=== PATIENT | female | born 1990 | race Two or more races ===

== ENCOUNTER → 2016-06-07 | Outpatient (CLI) | payer OTHER ==
[~2016-06-07] MED LIST: ACET50TA PO; COLA50CA3 PO; IBUP80TA PO; [UNRECOGNIZED DRUG - CODE] TOP
--- NOTE | 2016-06-07 16:28 | REP ---
LEFT FOOT: HISTORY: Pain after trauma. COMPARISON: None. FINDINGS: The joint spaces are symmetric and relatively well maintained. There is no evidence of acute fracture or destructive osseous lesion. IMPRESSION: Negative. Signed by Karlo Machuca DO 06/07/2016 04:39 P
== END ==
LOC: M LRY 15:53
PROVIDERS: ATTEND Nurse Practitioner Family
DX: S99.922A Unspecified injury of left foot, initial encounter (principal); X58.XXXA Exposure to other specified factors, initial encounter; Y92.9 Unspecified place or not applicable; Y93.9 Activity, unspecified; Y99.9 Unspecified external cause status
CPT/HCPCS: 73630; G0463